=== PATIENT | female | born 2005 | race Caucasian/White ===

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

== ENCOUNTER 2023-09-16 21:50 | Emergency (ER) | payer SELFPAY ==
[2023-09-16] MEDS: cefTRIAXone 1 GM Vial IM ONE (22:17)
[2023-09-16] MEDS: Ketorolac 30 MG/ML SDV IM ONE (22:17)
== END 2023-09-16 22:30 | disposition home or self-care (01) ==
LOC: CC.ED 21:50
DX: K04.7 Periapical abscess without sinus (principal)
CPT/HCPCS: 96372; 99283; J0696; J1885